=== PATIENT | male | born 1980 | race Caucasian/White ===

== ENCOUNTER 2021-08-24 01:39 | Emergency (ER) | payer OTHER ==
[2021-08-24 02:22] LABS: HEMOGLOBIN 12.6 gm/dl (14.0-17.5); RED BLOOD COUNT 4.21 M/UL (4.20-5.50); WHITE BLOOD COUNT 9.1 K/UL (4.5-11.0)
[2021-08-24 02:42] LABS: BUN/CREATININE RATIO 9 (0-10)
== END 2021-08-24 06:24 | disposition home or self-care (01) ==
LOC: ER1 01:39
PROVIDERS: Family Medicine
DX: T81.30XA Disruption of wound, unspecified, initial encounter (principal); J44.9 Chronic obstructive pulmonary disease, unspecified; F17.210 Nicotine dependence, cigarettes, uncomplicated; Y83.8 Other surgical procedures as the cause of abnormal reaction of the patient, or of later complication, without mention of misadventure at the time of the procedure
CPT/HCPCS: 80053; 83605; 85025; 87040; 87070; 87205; 99284; Q9967